=== PATIENT | male | born 1990 | race Caucasian/White ===

== ENCOUNTER 2020-10-28 21:22 | Emergency (ER) | payer MEDICAID ==
[~2020-10-28] VITALS: Ht 177.8 cm; Wt 66.7 kg
[2020-10-28 21:34] VITALS: BP 120/81; Ht 177.8 cm; Wt 66.7 kg
== END 2020-10-28 23:09 | disposition home or self-care (01) ==
LOC: ED 21:22
DX: S63.286A Dislocation of proximal interphalangeal joint of right little finger, initial encounter (principal); S61.216A Laceration without foreign body of right little finger without damage to nail, initial encounter; F17.210 Nicotine dependence, cigarettes, uncomplicated; V00.131A Fall from skateboard, initial encounter; Y93.51 Activity, roller skating (inline) and skateboarding; Y92.89 Other specified places as the place of occurrence of the external cause; Y99.8 Other external cause status
CPT/HCPCS: 99406; A4570; J2001